=== PATIENT | male | born 1960 | race Caucasian/White ===

== ENCOUNTER 2019-10-22 09:03 | Outpatient (CLI) | payer MEDICAID, SELFPAY ==
--- NOTE | ~2019-10-22 | CT_ITS ---
EXAMINATION: CT lung screening DATE: 10/22/2019 10:23 INDICATION: Personal history of nicotine dependence, prior smoker with 33 pack year history TECHNIQUE: Computed tomography (CT) of the chest was performed without intravenous contrast. The dose -length product (DLP) was 127.20 mGy-cm. Automated exposure control and iterative reconstruction tech [employer] were employed. COMPARISON: None FINDINGS: There are 3 mm nodules of the left lower lobe on images 54 and 86. There is mild emphysema. The lungs are free of focal airspace opacities. There is minimal dependent atelectasis. No pathologi michele enlarged thoracic lymph nodes are identified. The heart size is normal. Calcified coronary jose ry atherosclerosis is noted. There are multiple healed left-sided rib fractures. Cysts of the left he patic lobe measure up to 12 mm. IMPRESSION: 1. Lung-RADS category 2: Benign appearance or behavior. Continue annual screening with noncontrast lo w-dose chest CT in 12 months. Reviewed, dictated and finalized at location A. IMPRESSION: 1. Lung-RADS category 2: Benign appearance or behavior. Continue annual screeni ng with noncontrast low-dose chest CT in 12 months.
--- NOTE | ~2019-10-22 | US_ITS ---
EXAMINATION: US scrotum doppler EXAM DATE: 10/22/2019 11:08 INDICATION: Intermittent right testicular pain. Prostate cancer, prostatectomy. Palpable abnormality. TECHNIQUE: Multiple grayscale and Doppler images of the testicles and scrotum were obtained bilateral ly. There is no prior study for comparison. FINDINGS: Scanning in the right scrotal palpable abnormality demonstrates elongated, tubular nonspeci fic hypoechoic region, could be along the spermatic cord, with some internal vascularity suspected. T his is nonspecific region. Right testicle measures 3.5 x 2.3 x 1.4 cm and is morphologically normal. Low resistance Doppler ric w confirmed. The epididymis is unremarkable. There is no hydrocele or varicocele. Left testicle measures 4.3 x 2.4 x 1.7 cm and is morphologically normal. Low resistance Doppler flow confirmed. The epididymis is unremarkable. There is no hydrocele or varicocele. IMPRESSION: 1. Nonspecific hypoechoic, tubular appearing soft tissue along the expected course of spermatic cord of uncertain clinical significance. Consider consult. Reviewed, dictated and finalized at location A. IMPRESSION: 1. Nonspecific hypoechoic, tubular appearing soft tissue along the expected co urse of spermatic cord of uncertain clinical significance. Consider consult.
== END 2019-10-22 09:04 | disposition home or self-care (01) ==
PROVIDERS: PCP Nurse Practitioner Family; Visit Provider Nurse Practitioner Family
DX: N50.811 Right testicular pain (principal); Z12.2 Encounter for screening for malignant neoplasm of respiratory organs; Z87.891 Personal history of nicotine dependence
CPT/HCPCS: 76870; 93976; G0297

== ENCOUNTER 2020-04-04 09:36 | Outpatient (CLI) | payer OTHER, SELFPAY ==
[2020-04-04 09:55] LABS: Basophils Absolute Auto 0.04 K/mm3 (0.00-0.10); Basophils Percent Auto 0.9 % (0.0-1.0); Eosinophils Absolute Auto 0.07 K/mm3 (0.02-0.50); Eosinophils Percent Auto 1.6 % (1.0-6.0); Hematocrit 43.5 % (40.0-54.0); Hemoglobin 14.3 g/dL (14.0-18.0); Immature Granulocyte Absolute 0.01 K/mm3 (0.00-0.00); Immature Granulocyte Percent A 0.2 % (0.0-0.0); Lymphocytes Absolute Auto 1.45 K/mm3 (1.10-4.50); Lymphocytes Percent Auto 32.4 % (18.0-42.0); Mean Corpuscular HGB Conc 32.9 g/dL (32.0-36.0); Mean Corpuscular Volume 94.4 fL (78.0-102.0); Mean Platelet Volume 9.1 fl (8.7-11.0); Monocytes Absolute Auto 0.46 K/mm3 (0.10-0.90); Monocytes Percent Auto 10.3 % (2.0-11.0); Neutrophils Absolute Auto 2.4 K/mm3 (1.7-7.2); Neutrophils Percent Auto 54.6 % (50.0-70.0); Platelet Count Result 253 K/mm3 (150-420); Red Blood Count 4.61 M/mm3 (4.70-6.10); Red Cell Distribution Width 12.5 % (11.6-14.4); White Blood Count 4.5 K/mm3 (4.8-10.8)
[2020-04-04 10:57] LABS: Alanine Aminotransferase 27 U/L (16-63); Albumin Level 4.1 g/dL (3.4-5.0); Alkaline Phosphatase 38 U/L (46-116); Anion Gap 7 mmol/L (8-16); Aspartate Amino Transferase 21 U/L (15-37); Bilirubin,Total 0.9 mg/dL (0.00-1.00); Blood Urea Nitrogen 23 mg/dL (7-18); Calcium 8.9 mg/dL (8.5-10.1); Carbon Dioxide 29 mmol/L (21-32); Chloride 104 mmol/L (98-108); Cholesterol 229 mg/dL (0-200); Estimated Glomerular Filt Rate > 60; Glucose 83 mg/dL (70-99); HDL Direct 56 mg/dL (40-60); LDL Cholesterol Calculated 158 mg/dL (<130); Osmolality Calculated 292 mOsm/kg (285-295); Potassium 4.6 mmol/L (3.5-5.1); Sodium 140 mmol/L (136-145); Total Protein 6.8 g/dL (6.4-8.2); Triglycerides 75 mg/dL (0-150)
[2020-04-06 21:18] LABS: PSA, Free <0.01 ng/mL; PSA, Total <0.1 ng/mL (<=4.0)
== END 2020-04-04 09:37 | disposition home or self-care (01) ==
LOC: CHSLAB 09:37
PROVIDERS: PCP Nurse Practitioner Family; Visit Provider Nurse Practitioner Family
DX: E78.5 Hyperlipidemia, unspecified (principal); Z12.5 Encounter for screening for malignant neoplasm of prostate
CPT/HCPCS: 36415; 80053; 80061; 84153; 84154; 85025

== ENCOUNTER 2020-05-28 10:53 | Outpatient (CLI) | payer OTHER, SELFPAY ==
--- NOTE | ~2020-05-28 | US_ITS ---
EXAMINATION: US soft tissue groin RT DATE: 05/28/2020 11:23 INDICATION: Right inguinal mass and pain. TECHNIQUE: Multiple grayscale and Doppler ultrasound images of the right inguinal region were obtaine d. COMPARISON: CT abdomen and pelvis 02/15/2016 FINDINGS: There is a small right inguinal hernia in the patient's area of concern, likely containing only fat. The hernia contained only fat on the prior CT. IMPRESSION: 1. Small right inguinal hernia. Reviewed, dictated and finalized at location A.
== END 2020-05-28 10:54 | disposition home or self-care (01) ==
PROVIDERS: PCP Nurse Practitioner Family
DX: R10.31 Right lower quadrant pain (principal)
CPT/HCPCS: 76882

== ENCOUNTER 2020-10-16 13:49 | Outpatient (RCR) | payer OTHER, SELFPAY ==
--- NOTE | 2020-10-16 15:24 | PTOPEVAL ---
Thank you for referring Nimesh Werner to [facility].? The patient is scheduled to be seen for therapy? __2__x/week for 10 visits. Please review, sign, date and return this plan of care EVONNE. I agree with and certify that the following plan of care is medically necessary. Referring Physician Date Admitting Provider: Attending Provider: SHANTA HELTON Referring Provider: *PT Outpatient Evaluation Start: 10/16/20 14:12 Freq: Status: Active Protocol: Document 10/16/20 14:12 JENNIFER (Rec: 10/16/20 15:23 JENNIFER [id number]) Therapy Assessment Status Assessment Status Assessment Status Evaluation Evaluation Information Problem Diagnosis pelvic pain Onset 01/05/19 Subjective Information Pt. reports that he has had Query Text:As Reported By Patient/ pain since 2019. He reports Family having undergone treatment multiple times for prostate cancer. Pt. reports that he had surgery to reduce pain in the testicle. He reports that he has since developed pain along the right side of the lumbosacral region, iliac crest and into the groin. He reports that pain is not constant, but related more to his activity level. He reports that his pain does not keep him from completing his tasks, but definietly can limit more vigorous activity. He states his goal is to reduce pain. Prior Level of Function Activity Level (Last 3 Months) Occupation carpentar Hand Dominance Right Activity of Daily Living Ability Independent Indoor/Home Mobility Independent Community Mobility Independent Stairs Ability Independent Functional Cognition (Planning, Shopping Independent , Taking Medications) Cooking Yes Cleaning Yes Laundry Yes Shopping Yes Driving Yes Pain Assessment Pain Scale Pain Scale Used Numeric (1 - 10) Self Report Pain Assessment Groin Reported Pain Level 8 Pain Description Aching Lower Back Reported Pain Level 5 Pain Description Aching Pain Frequency Intermittent Pain Aggravating Factors
--- NOTE | 2020-11-19 17:41 | PTOPEVAL ---
Thank you for referring Nimesh Werner to [facility].? The patient is scheduled to be seen for therapy? ____x/week for ___ weeks. Please review, sign, date and return this plan of care EVONNE. I agree with and certify that the following plan of care is medically necessary. Referring Physician Date Admitting Provider: Attending Provider: HSANTA HELTON Referring Provider: DIANDRA Outpatient Evaluation Start: 10/16/20 14:12 Freq: Status: Active Protocol: Document 11/19/20 16:30 [facility] (Rec: 11/19/20 17:40 [facility] [id number]) Therapy Assessment Status Assessment Status Assessment Status Re-evaluation Evaluation Information Problem Diagnosis pelvic pain Onset 01/05/19 Additional Evaluation Detail LEFS = 26% functionally declined Subjective Information patient reports he is Query Text:As Reported By Patient/ improving. he reports he is Family having consistent and more frequent good days. he reports overall his pain is lower, but reports at times he will continue to have bouts of increased pain. he reports he is compliant with his HEP at home. Pain Assessment Timing of Pain Assessment Timing of Pain Assessment Assessment Pain Scale Pain Scale Used Numeric (1 - 10) Self Report Pain Assessment Left Hip(s) Reported Pain Level 5 Greatest Pain Intensity 7 Groin Reported Pain Level 0 Greatest Pain Intensity 0 Lower Back Reported Pain Level 3 Greatest Pain Intensity 5 Pain Score Pain Score 0,3,5: Self Report Interventions Used Interventions Used By Clinicians Electrical Stimulation, Exercise,Heat,Manual Therapy Techniques Cervical and Lumbar ROM Lumbar ROM Lumbar Flexion Active Floor Query Text:Hands to: Lumbar Extension (0-40) 40 Query Text:Active in Degrees Lumbar Lateral Flexion Right (0-40) 40 Query Text:Active in Degrees Lumbar Lateral Flexion Left (0-40) 40 Query Text:Active in Degrees Cervical and Lumbar Muscle Testing Lumbar Strength Upper Abdominal Strength 3+Fair+ Lower Abdominal Strength 3+Fair+ Abdominal Obliques 3+Fair+ Lower Extremity Muscle Strength Testing Hip Strength Left Hip Flexion Strength 5 Normal Hip Extension Strength 5 Normal Hip Abduction Strength 4+ Good + Right Hip Flexion Strength 4+ Good + Hip Extension S
== END 2021-01-11 17:37 | disposition home or self-care (01) ==
LOC: CHSPT 13:49
PROVIDERS: PCP Nurse Practitioner Family
DX: R10.2 Pelvic and perineal pain (principal)
CPT/HCPCS: 97014; 97110; 97140; 97161; G0283

== ENCOUNTER 2021-04-25 09:11 | Emergency (ER) | payer OTHER, SELFPAY ==
--- NOTE | ~2021-04-25 | XR_ITS ---
EXAMINATION: XR finger 1st RT min 2V INDICATION: Right first finger pain TECHNIQUE: Views of the right first finger are obtained. COMPARISON: None available FINDINGS: There is a soft tissue laceration at the palmar aspect of the thumb overlying the distal ph alanx. No fracture is identified. There is no radiopaque foreign body. Mild osteoarthritis is noted i n the interphalangeal joints. IMPRESSION: 1. Soft tissue laceration of the right first finger without underlying osseous abnormality. Reviewed, dictated and finalized at location A.
[2021-04-25 09:15] VITALS: BP 119/79; PULSE 59; RESP 16; TEMP 36.1; O2SAT 100
[2021-04-25] MEDS: SODIUM CHLORIDE 0.9% IRRIG 1,000 ML 999 ML IRRIGATION (09:40)
--- NOTE | 2021-04-25 09:41 | PC.NURSE ---
normal saline 1 L irrigation of wound at 0940 per erp orders. stop time 0941.
--- NOTE | 2021-04-25 09:50 | ED.WOUNDLAC ---
HPI - Wound/Laceration General Chief Complaint: Wound/Laceration Stated Complaint: R thumb lac from table saw Time Seen by Provider: 04/25/21 09:13 Source: patient and RN notes reviewed Mode of arrival: ambulatory Limitations: no limitations History of Present Illness Onset (ago): minute(s) (20) Extremity Location: Right: hand Place: home Patient tetanus UTD: No Context: accidental Associated symptoms: pain Treatments prior to arrival: bandage Related Data Home Medications Medication Instructions Recorded Confirmed calcium carbonate 500 mg calcium 500 mg PO DAILY 08/01/19 04/25/21 (1,250 mg) tablet cholecalciferol (vitamin D3) 100 4,000 unit PO DAILY 08/01/19 04/25/21 mcg (4,000 unit) capsule tqhegkuazyy-cpmmyuluz-zbie391-hyal 1 tablet PO DAILY tablet 09/10/19 04/25/21 750 mg-100 mg-125 mg-1.65 mg tablet smcieqqtqvjt-jtq-sudnj acid-vit 1 tablet PO DAILY 10/18/19 04/25/21 K-lycop 400 mcg-20 mcg-370 mcg tablet psyllium husk 0.52 gram capsule 2.08 gm PO DAILY cap 10/18/19 04/25/21 Allergies Allergy/AdvReac Type Severity Reaction Status Date / Time No Known Allergies Allergy Verified 07/14/20 12:25 Review of Systems Review of Systems: All systems reviewed & are unremarkable except as noted in HPI and below Musculoskeletal: Musculoskeletal: Reports as per HPI [facility] Past Medical History Medical History (Updated 04/25/21 @ 10:21 by Marcin Edward MD) Anxiety Bulging of cervical intervertebral disc Hyperlipidemia Major depressive disorder, recurrent Malignant tumor of prostate onset in 2017-finished radiation on 12/12/17 Muscle cramp, nocturnal Nicotine dependence Right knee pain Trigger thumb of left hand Surgical History Surgical History H/O neck surgery History of prostate surgery History of surgical removal of meniscus of knee Family History Family History Mother Breast cancer Esophageal cancer Other Arthritis Cancer Social History Social History Social History: , has 2 children Smoking packs per day: 0.5 Smoking cigarettes per day: 10.0 Years smoked: 33 Smoking pack-years: 16.50 Smoking status: Former smoker Tobacco type: cigarettes Alcohol intake: current Alcohol use details: social Substance use: unknown Substance use type: marijuana Gender identity (if verbalized by the patient): Male Spiritual care concerns: No Exam Const: General: no acute distress and alert Nutritional Appearance: well nourished Orientation/consciousness: patient oriented x3 HENMT: Head: normal to inspection Ears: external ears normal, TM's normal bilaterally and EAC's normal General nose exam: Normal external nose present and Normal nares present Mouth: Yes moist mucous membranes Eyes: Conjunctivae: conjunctivae normal Pupils: Equal, round and reactive pupils present EOM: EOMs intact bilaterally Neck: Neck: normal visual inspection and no lymphadenopathy Chest: Chest palpation & inspection: normal inspection of the chest Resp: Effort & Inspection: normal respiratory effort Auscultation: clear to auscultation bilaterally Cardio: Rate: regular rate Rhythm: regular rhythm GI: GI Palp: Yes Soft to palpation (non-tender) Percussion: Yes normal to percussion Back/Spine/Pelvis: Back: no CVA tenderness Skin: General skin exam: normal color Rashes: no rashes Neuro: General: patient oriented x3, moves all extremities, no meningeal signs, no focal motor deficits and CN's II-XI intact bilaterally Extrem: Other: wide anterior right thumb laceration 2.5 cm. no FB seen, full ROM right thumb. Psych: Appearance: grossly normal and well kempt Mental Status: mental status grossly normal Affect: normal affect Attitude: cooperative Thought content: Yes Normal thought content pre
[2021-04-25] MEDS: TETANUS,DIPHTHERIA,AC PERTUSSIS ADULT 0.5 ML (ADACEL) IM (09:53)
[2021-04-25] MEDS: cefTRIAXone 1 GM VIAL IM (09:53)
[2021-04-25] MEDS: LIDOCAINE HCL 2% PF INJ 5 ML VIAL 3 ML INFILTRATE (09:54)
[2021-04-25] MEDS: LIDOCAINE HCL 1% LOCAL INJ 20 ML VIAL (09:55)
--- NOTE | 2021-04-25 10:24 | PC.NURSE ---
ERP ENTERS ROOM 7 TO REPAIR LACERATION AT THIS TIME
[2021-04-25 11:05] VITALS: BP 130/91; PULSE 58; RESP 16; O2SAT 100
--- NOTE | 2021-04-25 11:11 | PC.NURSE ---
DRESSING PLACED ON RIGHT THUMB DIRECTED BY ERP
== END 2021-04-25 11:10 | disposition home or self-care (01) ==
PROVIDERS: Emergency Provider Emergency Medicine; PCP Nurse Practitioner Family
DX: S61.011A Laceration without foreign body of right thumb without damage to nail, initial encounter (principal); W27.0XXA Contact with workbench tool, initial encounter
CPT/HCPCS: 12001; 73140; 90471; 90715; 96372; 99283; J0696; J7030

== ENCOUNTER 2021-10-18 08:20 | Outpatient (CLI) | payer OTHER, SELFPAY ==
--- NOTE | ~2021-10-18 | XR_ITS ---
EXAMINATION: XR hip RT 2V w AP pelvis DATE: 10/18/2021 08:44 INDICATION: Right hip pain. TECHNIQUE: An anteroposterior view of the pelvis and 2 views of right hip were obtained. COMPARISON: CT abdomen and pelvis 02/15/2016 FINDINGS: Bone alignment is normal. No fracture. There is mild osteoarthritis of the hips. There is m ild lumbar spondylosis. There are surgical clips overlying the pelvis. IMPRESSION: 1. Mild osteoarthritis of the hips. Reviewed, dictated and finalized at location A.
== END 2021-10-18 08:21 | disposition home or self-care (01) ==
LOC: CHSIMG 08:21
PROVIDERS: PCP Nurse Practitioner Family; Visit Provider Orthopaedic Surgery
DX: M25.551 Pain in right hip (principal)
CPT/HCPCS: 73502

== ENCOUNTER 2022-01-31 02:20 | Day surgery (SDC) | payer OTHER, SELFPAY ==
[2022-01-21 10:00] VITALS: BMI 24.7
[2022-01-31 06:25] VITALS: BP 117/73; PULSE 62; RESP 20; TEMP 36; O2SAT 100; BMI 24.2
[2022-01-31] MEDS: LACTATED RINGERS 1,000 ML 150 ML IV CONT (06:34)
--- NOTE | 2022-01-31 07:26 | WPDANESEPPF ---
Anes - Initial Pre Proc Eval Procedure: Operation Date: 01/31/22 07:30 Proposed Procedures p Colonoscopy - Luca Austin MD Date/Time: 01/31/22 07:26 Surgeon: Luca Austin MD Pre Op Diagnosis: change in bowel habits Patient Data Age: 61 Gender: M Height: 1.73 m Weight: 72.2 kg Last Vital Signs Temp 96.8 F L 01/31/22 06:25 Pulse 62 01/31/22 06:25 Resp 20 01/31/22 06:25 BP 117/73 01/31/22 06:25 Pulse Ox 100 01/31/22 06:25 O2 Del Method Room Air 01/31/22 06:25 Allergies Allergy/AdvReac Type Severity Reaction Status Date / Time No Known Allergies Allergy Verified 01/31/22 06:20 Home Medications Medication Instructions Recorded Confirmed Type cholecalciferol (vitamin D3) 100 4,000 unit PO DAILY 08/01/19 01/21/22 History mcg (4,000 unit) capsule (Vitamin D3) tzlgriyitqv-mrebefhgf-oukx972-hyal 1 tablet PO DAILY 09/10/19 01/21/22 History 750 mg-100 mg-125 mg-1.65 mg tablet (Glucosamine Chondroit Complx Advan) orzwicrvsjhd-alt-rqpnf acid-vit 1 tablet PO DAILY 10/18/19 01/21/22 History K-lycop 400 mcg-20 mcg-370 mcg tablet (Men's 50 Plus Multivitamin) psyllium husk 0.52 gram capsule 2.08 gm PO DAILY 10/18/19 01/21/22 History (Fiber (psyllium husk)) omega-3 fatty acids 1,000 mg 1,000 mg PO BID #180 caps 04/07/20 01/21/22 Rx capsule (Fish Oil Concentrate) pregabalin 50 mg capsule 50 mg PO BID 09/24/21 01/21/22 History clotrimazole 1 % topical cream 1 applic topical Q12H 2 weeks #45 01/04/22 01/21/22 Rx grams tramadol 50 mg tablet 50 mg PO Q6H PRN pain #9 tabs 01/04/22 01/21/22 Rx alprazolam 0.5 mg tablet (Xanax) 0.5 mg PO BID PRN anxiety #20 tabs 01/05/22 01/21/22 Rx peg 3350-electrolytes 236 240 ml PO Q10M #4,000 mL 01/21/22 01/21/22 Rx gram-22.74 gram-6.74 gram-5.86 gram solution (Golytely) Patient hx anesthesia problems: none Family hx anesthesia problems: none Results Review: All pre-operative results and documents have been reviewed as part of the pre-operative evaluation. [facility] Past Medical History Medical History (Updated 01/19/22 @ 15:44 by Aneudy Gallo DO) Anxiety Bulging of cervical intervertebral disc Gluteal tendinitis, right hip Greater trochanteric bursitis of left hip Hyperlipidemia Laceration of right thumb Major depressive disorder, recurrent Malignant tumor of prostate onset in 2017-finished radiation on 12/12/17 Muscle cramp, nocturnal Nicotine dependence Right knee pain Testicular pain Trigger thumb of left hand Trochanteric bursitis, right hip Vision changes Surgical History Surgical History H/O neck surgery History of prostate surgery History of surgical removal of meniscus of knee History of testicular surgery Removal of right testicle Family History Family History Mother Breast cancer Esophageal cancer Other Arthritis Cancer Social History Social History Social History: , has 2 children Smoking packs per day: 0.5 Smoking cigarettes per day: 10.0 Years smoked: 33 Smoking pack-years: 16.50 Smoking status: Former smoker Tobacco type: cigarettes Alcohol intake: current Alcohol use details: Social Substance use: former Substance use type: marijuana Living arrangements: alone Gender identity (if verbalized by the patient): Male Spiritual care concerns: No Anes - Eval Final PreProcedure Day of Procedure 01/31/22 07:26 Patient weight: normal Heart: regular rate and rhythm Lungs: clear to auscultation Airway: Mallampati scale class II Neurological: alert and oriented Last oral intake: >/= 8 hours ASA classification: III Emergent: no Anesthetic plan: proceed Anesthesia type and monitoring: general GIVS and standard monitoring Results Review: All pre-operative results and do
--- NOTE | 2022-01-31 07:37 | WPDHPUPDATE1 ---
History and Physical Update Update Date/Time: 01/31/22 07:37 Addendum colonoscopy to be performed because of right groin pain. Please note biopsies will not be performed because of radiation previously. History and Physical has been reviewed, including an updated exam of the patient. There are NO changes in the patient's condition. Risks, benefits, and alternatives have been discussed and questions answered. Patient agrees to proceed with procedure.
[2022-01-31 07:53] VITALS: BP 110/70; PULSE 61; RESP 16; O2SAT 100
[2022-01-31 08:03] VITALS: BP 110/73; PULSE 53; RESP 16; O2SAT 100
[2022-01-31 08:13] VITALS: BP 121/74; PULSE 55; RESP 18; O2SAT 100
== END 2022-01-31 08:37 | disposition home or self-care (01) ==
PROVIDERS: PCP Family Medicine; Visit Provider Internal Medicine Gastroenterology
PROC: 0DJD8ZZ Inspection of Lower Intestinal Tract, Via Natural or Artificial Opening Endoscopic (ICD-10-PCS; CPT 45378; principal; 2022-01-31 07:30)
DX: Z12.11 Encounter for screening for malignant neoplasm of colon (principal); K64.8 Other hemorrhoids; K57.30 Diverticulosis of large intestine without perforation or abscess without bleeding; R19.4 Change in bowel habit; Z85.46 Personal history of malignant neoplasm of prostate; Z92.3 Personal history of irradiation; Z87.891 Personal history of nicotine dependence
CPT/HCPCS: 45378; J2704; J7120

== ENCOUNTER 2025-02-24 13:59 | Outpatient (CLI) | payer OTHER, SELFPAY ==
--- NOTE | ~2025-02-24 | XR_ITS ---
EXAM/ PROCEDURE: XR hand LT min 3V - 02/24/2025 14:10 CDT HISTORY: 64 years old Male with M18.12 - Unilateral primary osteoarthritis of first carpo... COMPARISON: None available TECHNIQUE: Three view(s) FINDINGS/ IMPRESSION: There are no fractures or dislocations.Joint space narrowing, subchondral sclerosis, subchondral cyst formation and osteophyte formation, compatible with mild osteoarthritis, greatest at first carpometa carpal joint. Reviewed, dictated and finalized at location A.
--- OUTSIDE RECORDS SUMMARY | 2025-02-24 14:04 | XMS_ITS | Clinical Summary ---
Author Organization [facility] Address [address] [place] [address] Care Team Providers Care Senior Product Integrity Engineer Name Role Phone Unavailable Primary Care Provider Unavailabl e Source Comments [facility],non-owned Affiliates and Associated Physician Practices is amultiple site organization consisting of ambulatory clinics and hospital sitesin [place], [place], [place] and [place]. This disclosure is being madepursuant to the Care Everywhere program and may not contain all information available regarding this patient. Last updated 18.[facility] Allergies No known active allergies Medications * Be aware that medications may not be up to date on this document. Alwaysverify current medications with the patient. multivitamins (ONE A DAY) capsule Take 1 capsule by mouth once daily Active Ephraim-3 Fatty Acids (OMEGA-3 FISH OIL) 1200 MG Take 1,200 mg by mouth once daily Active Glucosamine HCl 1000 MG Take 1 tablet by mouth once daily Active Psyllium (FIBER) 28.3 % POWD Take 2 tablets by mouth 2 times daily Active Cholecalciferol 125 MCG (5000 UT) Take 5,000 Units by mouth once daily Active ALPRAZolam (XANAX) 0.5 MG tablet TAKE 1 TAB BY MOUTH TWICE DAILY NEEDED FOR ANXIETY 06/14/2021 Active DULoxetine (CYMBALTA) 60 MG capsule 11/10/2021 Active gabapentin (NEURONTIN) 100 MG capsule 04/30/2021 Active ibuprofen (MOTRIN) 800 MG tablet TAKE 1 TABLET BY MOUTH 3 TIMES A DAY 04/25/2021 Active Active Problems Problem Noted Date Diagnosed Date Adjustment disorder with depressed mood 07/14/20 21 Other chronic pain 07/14/2021 Complex regional pain syndrome type 2 06/21/2021 Groin pain, chronic, right 06/21/2021 Ilioinguinal neuralgia, right 06/21/2021 Pain in right testicle 06/11/2020 Overview (09/06/2021): Added automatically from request for surgery [id number] Malignant neoplasm of prostate 02/22/2016 Social History Tobacco Use Types Packs/Day Years Used Date Smoking Tobacco: Every Day Smokeless Tobacco: Never Alcohol Use Standard Drinks/Week Comments Yes 0 (1 standard drink = 0.6 oz pur e alcohol) Sex and Gender Information Value Date Recorded Sex Assigned at Not on file Legal Sex Male 7:24 PM [employer]UM [employer] Gender Identity Not on file Sexual Orientation Not on file Plan of Treatment Health Maintenance Due Date Last Done Comments COLOGUARD (AGES 45-75) - COL ON CA SCREENING 1962 COLON MONITORING 1962 COLONOSCOPY - COLON CA SCREENING 1962 CT COLONOGRAPHY - COLON CA SCREENING 1962 Colorectal Cancer Screening 1962 FIT - COLON CA SCREENING 1962 FLEX SIG - COLON CA SCREENING 1962 LIPID TESTING 1962 HIV SCREENING 1977 HEPATITIS C SCREENING 06/03/1980 DTAP/TDAP/TD VACCINES (1 - Tdap) 1981 PNEUMOCOCCAL VACCINE 50+ (1 of 1 - PCV) 2012 ZOSTER VACCINE (1 of 2) 2012 COVID-19 VACCINE (3 - 2023-2 5 season) 2024 08/24/2021, 10/12/2020 DEPRESSION SCREENING 08/07/2024 INFLUENZA VACCINE (#1) 2025 Respiratory Syncytial Virus (RSV) Vaccine Pt: or over 60 yrs (1 - 1-dose 75+ series) 2037 HEPATITIS B VACCINE Aged Out No longe r eligible based on patient's age to complete this topic HIB VACCINE Aged Out No longer eligi ble based on patient's age to complete this topic HPV VACCINE Aged Out No longer eligi ble based on patient's age to complete this topic MENINGOCOCCAL (Group B) VACCINE SHARED DECISION-MAKING Aged Out No longer eligible based on patient's age to complete this topic MENINGOCOCCAL GROUPS A/C/Y/W VACCINE Aged Out No longer eligible b ased on patient's age to complete this topic Insurance [facility]
--- OUTSIDE RECORDS SUMMARY | 2025-02-24 14:04 | XMS_ITS | Clinical Summary ---
Author Organization [place] [id number] Address [address] [place] [address] Care Team Providers Care Surgical Consultant Name Role Phone Foster Mena MD Unavailable Sherita Handley NP Unavailable [phone] Aneudy Gallo DO Primary Care Provider Allergies No known active allergies Medications ALPRAZolam (XANAX) 1 mg tablet Take 1 tablet (1 mg total) by mouth nightly as needed for anxiety Active glucosamine HCl (GLUCOSAMINE, BULK, MISC)Indication s:supplement Take 1 tablet by mouth daily before breakfast Active multivitamin capsuleIndicati ons:Vitamin Deficiency Prevention Take 1 capsule by mouth daily before breakfast Active omega 1-ohx-lcg-fish oil 1,200 (144-216) mg capsuleIndicati ons:hypertrigly ceridemia Take 1,200 mg by mouth daily before breakfast Active cholecalciferol (VITAMIN D-3) 5,000 unit tabletIndicatio ns:Vitamin D Deficiency Take 1 tablet (5,000 Units total) by mouth daily before breakfast Active luzw-pjr-pqs-ce c-sjna-kksf-pec (Fiber 6) 1,000 mg tabletIndicatio ns:constipation Take 2 tablets by mouth 2 (two) times a day Active atorvastatin (LIPITOR) 20 mg tablet Take 1 tablet (20 mg total) by mouth daily 09/20/19 24 Active lidocaine 5 % creamIndication s:abdominal wall pain Apply 2 g topically 4 (four) times a day 45 g 2 11/10/19 24 Active magnesium glycinate 100 mg tablet Take by mouth Active traMADoL (ULTRAM) 50 mg tabletIndicatio ns:Chronic use of opiate drug for therapeutic purpose TAKE 1 TABLET (50 MG TOTAL) BY MOUTH EVERY 6 (SIX) HOURS NEEDED FOR PAIN FOR PAIN 120 tablet 02/11/20 25 Active traMADoL (ULTRAM) 50 mg tabletIndicatio ns:Chronic use of opiate drug for therapeutic purpose Take 1 tablet (50 mg total) by mouth every 6 (six) hours as needed for pain for pain 120 tablet 01/10/20 25 025 Discontinued(Re order) traMADoL (ULTRAM) 50 mg tabletIndicatio ns:Chronic use of opiate drug for therapeutic purpose Take 1 tablet (50 mg total) by mouth every 6 (six) hours as needed for pain for pain 120 tablet 02/09/20 25 025 Discontinued Active Problems Problem Noted Date Diagnosed Date Chronic use of opiate drug for therapeutic purpo se 01/12/2022 Other chronic pain 07/14/2021 Adjustment disorder with depressed mood 07/14/20 21 Complex regional pain syndrome type 2 06/21/2021 Groin pain, chronic, right 06/21/2021 Ilioinguinal neuralgia, right 06/21/2021 Pain in right testicle 06/11/2020 Overview (06/11/2020): Added automatically from request for surgery [id number] Malignant neoplasm of prostate 02/22/2016 Cancer Staging:Pathologic stage from 01/27/2016: pT2, pN0, cM0, PSA: 11 - Signed by Blanche Landry MD on 02/07/2018 Encounters Date Type Department Care Team Description 02/03/2025 8:30 AM CDT - 02/03/2025 11:59 PM CDT Hospital Encounter [address] [address] Discharge Disposition: Discharge to home or self care 02/03/2025 8:00 AM CDT - 02/03/2025 11:59 PM CDT Hospital Encounter [facility] [address] [place] [address] [facility] [address] [place] [id number] Grayson Garcia MD PhD Chronic use of opiate drug for therapeutic purpose (Primary Dx) Discharge Disposition: Discharge to home or self care from Last 3 Months Immunizations Immunization Administration Dates Next Due Visuu (J&J) SARS-CoV-2 Vaccination 10/12/2020 Pfizer SARS-CoV-2 Monovalent Vaccination (12+ Yrs) ACUNA-READY TO USE 08/24/2021 Surgical History Surgery Date Site/Laterality Comments CERVICAL DISC SURGERY 07/05/2018 C5-C6 KNEE ARTHROSCOPY 08/07/2017 - 08/06/2018 Left RADICAL PROSTATECTOMY 08/07/2015 - 08/06/2016 TESTICLE SURGERY 08/13/2020 DENERVATION RIGHT SPERMATIC CORD BIOPSY DEEP BONE 06/16/2021 N/A COLONOSCOPY ORCHIECTOMY 12/17/2020 Right NERVE EXPLORATION 12/07/2021 Right Robotic selective ilioinguinal/iliohypogastr ic neurectomy Medical History Medical History Date Comments Anxiety Depression Prostate cancer (HCC) 03/2016 Hypercholesteremia Chronic pain disorder Macular pucker of both eyes Groin pain, right Right groin pain Abdominal pain Abdominal pain Family History Medical History Relation Name Comments Heart disease Father Prostate cancer Father Family histo ry of malignant neoplasm of prostate - (Added by TW Conv) Breast cancer Mother Family history of malignant neoplasm of breast - (Added by TW Conv) Esophageal cancer Mother Family his tory of malignant neoplasm of esophagus - (Added by TW Conv) Anesthesia problems Neg Hx Relation Name Status Comments Father Other states dad has a damaged heart Mother Social History Tobacco Use Types Packs/Day Years Used Date Smoking Tobacco: Former Cigarettes 0.5 30 1 1 - 2020 Smokeless Tobacco: Never Tobacco Cessation:Counseling Given: Not Answered Comments:currently using nicorette gum Alcohol Use Standard Drinks/Week Comments Yes 0 (1 standard drink = 0.6 oz pur e alcohol) AUDIT-C Answer Date Recorded Q1: How often do you have a drink containing alc ohol? Monthly or less 02/03/2025 Q2: How many drinks containi ng alcohol do you have on a typical day when you are drinking? 1 or 2 02/03/2025 Q3: How often do you have si x or more drinks on one occasion? Never 02/03/2025 Hunger Vital Sign Answer Date Recorded Within the past 12 months, y ou worried that your food would run out before you got the money to buy more. Never true 08/02/20 24 Within the past 12 months, t he food you bought just didn't last and you didn't have money to get more. Never true 08/02/2024 Sex and Gender Information Value Date Recorded Sex Assigned at Not on file Legal Sex Male 4:06 AM SUPERVISOR COMPONENT ASSEMBLER Gender Identity Male 01/27/2020 1:06 PM CDT Sexual Orientation Straight 01/27/2020 1: 06 PM CDT Obstetrics History Last Filed Vital Signs Vital Sign Reading Time Taken Comments Blood Pressure 127/80 02/03/2025 8:05 AM CDT Pulse 58 02/03/2025 8:05 AM CDT Temperature 36.4 C (97.5 F) 02/03/2025 8:05 AM CDT Respiratory Rate 14 02/03/2025 8:05 AM CDT Oxygen Saturation 99% 02/03/2025 8:05 AM CDT Inhaled Oxygen Concentration - - Weight 77.1 kg (170 lb) 02/03/2025 8:05 AM CDT Height 170.2 cm (5' 7) 02/03/2025 8:05 AM CDT Body Mass Index 26.63 02/03/2025 8:05 AM CDT Plan of Treatment Health Maintenance Due Date Last Done Comments Colon Cancer Screening-Colonoscopy 1962 Depression Screening 1962 Hepatitis C Screening 1962 DTaP/Tdap/Td Vaccine (1 - Tdap) 1973 Hepatitis B Screening 1980 Regular Well Visit/Exam 18-64 1980 Zoster Vaccine (3 of 3) 08/12/2022 06/17/2022, 12/14 Prostate Cancer Screening-PSA 09/22/2023 09/22/2021, 03/25/2021, 08/04/2020, Additional history exists Covid-19 Vaccine (3 - 2023- season) 2024 08/24/2021, 10/12/2020 Influenza Vaccine (#1) 2025 03/30/2018 Pneumococcal vaccine <65 Aged Out No longer eligible based on patient's age to complete this topic Goals Goal Patient Goal Type Associated Problems Recent Progress Patient-Stated? Author CCM Chronic Pain Care Plan Chronic Care Management On track(2024 8:09 AM CDT) No Ni Duque, RN Note: Problem: Chronic Pain Goals: 1. Minimize further functional decline 2. Maximize quality of life 3. Control pain Strategies: - Activity/exercise program recommendation - Conservative stepwise pain medicine strategy with multi-disciplinary approach - Recommend healthy lifestyle strategies and compensatory methods as needed Medical Devices Implanted Type Area Poiser Balance Device Identifier Shelf Expiration Date Model / Serial / Lot [employer] [id number] Graft Soft Tissue Amniofix Purion Amniotic Membrane L2cm X W4cm Wrap - Sn/A - [id number] Implanted:Qty : 1 on 08/13/2020 by Fabio Kennedy MD at [facility] Other - see comments Right: Testicle [employer] 12/05/2024 [id number] / N/A / [id number] Cervical N/A: Neck Procedures Procedure Name Priority Date/Time Associated Diagnosis Comments TARGET OPIOID SCREEN BY REAL ESTATE ACQUISITION ANALYST Routine 02/03/2025 8:32 AM CDT DRUGS OF ABUSE SCREEN, URINE WITH REFLEX CONFIRMATION Routine 02/03/2025 8:32 AM CDT PSA DIAGNOSTIC Routine 09/22/2021 8:55 AM SUPERVISOR COMPONENT ASSEMBLER Malignant neoplasm of prostate (HCC) from Last 3 Months or Most Recently Relevant to Health Maintenance Results * Targeted Opioid Screen, Ur (02/03/2025 8:32 AM CDT) Pathologist [facility] Pain mgt 6-Acetylmorphine, Ur Not Detected CutOff 10 ng/mL Pain mgt Buprenorphine, Ur Not Detected CutOff 5 ng/mL [facility] Pain mgt Buprenorphine metabolite (Norbuprenorphine), Ur Not Detected CutOff 5 ng/mL [facility] Pain mgt Codeine, Ur Not Detected CutOff 25 ng/mL [facility] Pain mgt Hydrocodone, Ur Not Detected CutOff 25 ng/mL [facility] Pain mgt Hydromorphone, Ur Not Detected CutOff 25 ng/mL [facility] Pain mgt Methadone, Ur Not Detected CutOff 25 ng/mL [facility] Pain mgt Methadone Metabolite (EDDP), Ur Not Detected CutOff 25 ng/mL [facility] Pain mgt Morphine, Ur Not Detected CutOff 25 ng/mL [facility] Pain mgt Oxycodone, Ur Not Detected CutOff 25 ng/mL [facility] Pain mgt Oxymorphone, Ur Not Detected CutOff 25 ng/mL [facility] Pain mgt Tapentadol, Ur Not Detected CutOff 25 ng/mL [facility] Pain mgt Tramadol, Ur Detected CutOff 25 ng/mL [facility] Pain mgt Tramadol metabolite (O-desmethyltramado l), Ur Detected CutOff 25 ng/mL [facility] Comment: Interpretive Data This test only detects free, unconjugated drugs. The absence of expected drug(s) and/or metabolite(s) may indicate non-compliance, inappropriate timing of specimen collection relative to the time of dosing, variability in absorption, diluted or adulterated urine, or other testing limitations. Questions concerning interpretation should be directed to the laboratory. The results of this test are to be used only for medical purposes and are not suitable for forensic use. This test was developed and its performance characteristics determined by [facility]. It has not been cleared or approved by the U.S. Food and Drug Administration. Current interpretive data was last revised 19. Pain mgt Naloxone, ur Not Detected cutoff 20 ng/ml [facility] Urine 02/03/2025 8:32 AM CDT 02/03/2025 5:03 PM CDT Grayson Garcia MD PhD LAB URINE ORDERAB LES Final Result [facility] [place] [address] * (ABNORMAL) Drugs of Abuse Screen, Urine with Reflex Confirmation (02/03/2025 8:32 AM CDT) [facility] Amphetamine, ur Not Detected CutOff 500ng/mL Comment: Interpretive Data - Amphetamines: Samples containing greater than 500 ng/mL d-methamphetamine or other cross-reacting amphetamine compounds are reported as positive. Amphetamine immunoassays are subject to significant false positive rates due to cross-reactivity of non-amphetamine drugs. Confirmatory testing required for definitive results. Current Interpretive Data was last reviewed 2023. Barbiturates, ur Not Detected CutOff 200ng/mL [facility] Comment: Interpretive Data - Barbiturates: Samples containing greater than 200 ng/mL secobarbital or other cross-reacting barbiturate compounds are reported as positive. False positive and false negative results are possible. Confirmatory testing required for definitive results. Current Interpretive Data was last reviewed 2023. Benzodiazepines, ur Not Detected CutOff 100ng/mL [facility] Comment: Interpretive Data - Benzodiazepines: Samples containing greater than 100 ng/mL nordiazepam or other cross-reacting compounds are reported as positive. False positive and false negative results are possible. Confirmatory testing required for definitive results. Current Interpretive Data was last reviewed 2023. Cannabinoids, ur Screen Positive, presumptive (A) CutOff 50 ng/mL [facility] Comment: Interpretive Data - Cannabinoids: Samples containing greater than 50 ng/mL delta-9 THC -COOH or other cross- reacting compounds are reported as positive. False positive and false negative results are possible. Confirmatory testing required for definitive results. Current Interpretive Data was last reviewed 2023. Cocaine, ur Not Detected CutOff 150ng/mL [facility] Comment: Interpretive Data - Cocaine: Samples containing greater than 150 ng/mL benzoylecgonine or other cross- reacting compounds are reported as positive. False positive and false negative results are possible. Confirmatory testing required for definitive results. Current Interpretive Data was last reviewed 2023. Fentanyl, Ur Not Detected CutOff 5 ng/mL [facility] Comment: Interpretive Data - Fentanyl: Samples containing greater than 5 ng/mL norfentanyl, fentanyl, or other cross-reacting fentanyl compounds are reported as positive. False positive and false negative results are possible. Confirmatory testing required for definitive results. Current Interpretive Data was last reviewed 2023. Methadone, ur Screen Positive, presumptive (A) CutOff 300ng/mL [facility] Comment: Interpretive Data - Methadone: Samples containing greater than 300 ng/mL d,l-methadone or other cross-reacting compounds are reported as positive. False positive and false negative results are possible. Confirmatory testing required for definitive results. Current Interpretive Data was last reviewed 2023. Opiates, ur Not Detected CutOff 300ng/mL [facility] Comment: Interpretive Data - Opiates: Samples containing greater than 300 ng/mL morphine or other cross-reacting compounds are reported as positive. False positive and false negative results are possible. Confirmatory testing required for definitive results. Current Interpretive Data was last reviewed 2023. Oxycodone, ur Not Detected CutOff 100ng/mL [facility] Comment: Interpretive Data - Oxycodone: Samples containing greater than 100 ng/mL oxycodone or other cross-reacting compounds are reported as positive. False positive and false negative results are possible. Confirmatory testing required for definitive results. Current Interpretive Data was last reviewed 2023. Phencyclidine, ur Not Detected CutOff 25 ng/mL [facility] Comment: Interpretive Data - Phencyclidine: Samples containing greater than 25 ng/mL phencyclidine or other cross-reacting compounds are reported as positive. False positive and false negative results are possible. Confirmatory testing required for definitive results. Current Interpretive Data was last reviewed 2023. Urine Creatinine 242 mg/dL [facility] Comment: Interpretive Data Urine Creatinine: < 10 mg/dL is extremely dilute = or > 10 but < 20 mg/dL is dilute = or > 20 mg/dL is normal Current Interpretive Data was last revised on 2017. Urine 02/03/2025 8:32 AM CDT 02/03/2025 5:03 PM CDT Narrative [facility] - 02/03/2025 6:27 PM CDT Drug of Abuse screening is performed by immunoassay for medical purposes only. This is not to be used for Pain Management purposes. If Detected, confirmation testing will be performed for Amphetamines, Cocaine, Fentanyl, Methadone, Opiates, Oxycodone or Phencyclidine. us Grayson Garcia MD PhD LAB URINE ORDERAB LES Final Result [facility] [place] [address] * PSA diagnostic (09/22/2021 8:55 AM SUPERVISOR COMPONENT ASSEMBLER) PSA <0.1 0.0 - 4.0 ng/mL [facility] - 01 Comment: Verified by repeat analysis Sunil ECLIA methodology. According to the [place] [employer], Serum PSA should decrease and remain at undetectable levels after radical prostatectomy. The AUA defines biochemical recurrence as an initial PSA value 0.2 ng/mL or greater followed by a subsequent confirmatory PSA value 0.2 ng/mL or greater. Values obtained with different assay methods or kits cannot be used interchangeably. Results cannot be interpreted as absolute evidence of the presence or absence of malignant disease. Blood specimen (specimen) 09/22/2021 8:55 AM SUPERVISOR COMPONENT ASSEMBLER 09/22/2021 Narrative [facility] - 09/23/2021 12:11 PM SUPERVISOR COMPONENT ASSEMBLER Performed at: - [address] [id number] [employer] Operator: Lloyd Pappas PhD, Phone: [phone] Sherita Handley [employer]FF[employer]NER [employer]TER LAB BLOOD ORDERABLES Final Result [facility] - 01 from Last 3 Months or Most Recently Relevant to Health Maintenance Insurance ANTHEM PREFERRED ANTHEM ACCESS CHOICE PRF PPO RI [facility] IDPA Advance Directives For more information, please contact: [phone] * Full Code (Latest Code Status on File) Date Activated Date Inactivated Comments 06/16/2021 10:03 AM 06/17/2021 4:54 AM * Full Code Date Activated Date Inactivated Comments 06/16/2021 10:03 AM 06/16/2021 10:03 AM Care Teams Surgical Consultant Relationship Specialty Start Date End Date Aneudy Gallo DO [address] [place] [address] PCP - General Family Medicine 11/10/23 Foster Mena MD [id number] [place] [address] Consulting Physician Radiation Oncology 09/28/20 Sherita Handley NP [id number] [place] [address] Nurse Practitioner Radiation Oncology 09/28/20
--- OUTSIDE RECORDS SUMMARY | 2025-02-24 14:04 | XMS_ITS | Referral Summary ---
Author Organization [facility] [address] [facility] Address [address] [place] [address] Care Team Providers Care Feed Mill Operator Name Role Phone Foster Mena MD Unavailable [phone] Sherita Handley NP Unavailable [phone] Aneudy Gallo DO Primary Care Provider Encounters Date Type Department Care Team Description 02/03/2025 8:30 AM CDT - 02/03/2025 11:59 PM CDT Hospital Encounter [place] [id number] Discharge Disposition: Discharge to home or self care 02/03/2025 8:00 AM CDT - 02/03/2025 11:59 PM CDT Hospital Encounter [facility] [address] [place] [address] Advanced Medicine [address] [place] [address] Grayson Garcia MD PhD Chronic use of opiate drug for therapeutic purpose (Primary Dx) Discharge Disposition: Discharge to home or self care from Last 3 Months Allergies No known active allergies Medications ALPRAZolam (XANAX) 1 mg tablet Take 1 tablet (1 mg total) by mouth nightly as needed for anxiety Active glucosamine HCl (GLUCOSAMINE, BULK, MISC)Indication s:supplement Take 1 tablet by mouth daily before breakfast Active multivitamin capsuleIndicati ons:Vitamin Deficiency Prevention Take 1 capsule by mouth daily before breakfast Active omega 2-tyq-xte-fish oil 1,200 (078-216) mg capsuleIndicati ons:hypertrigly ceridemia Take 1,200 mg by mouth daily before breakfast Active cholecalciferol (VITAMIN D-3) 5,000 unit tabletIndicatio ns:Vitamin D Deficiency Take 1 tablet (5,000 Units total) by mouth daily before breakfast Active yvzt-ptm-vgd-ce u-lgfw-inxv-pec (Fiber 6) 1,000 mg tabletIndicatio ns:constipation Take [...] (06/11/2020): Added automatically from request for surgery [id number] Malignant neoplasm of prostate 02/22/2016 Cancer Staging:Pathologic stage from 01/27/2016: pT2, pN0, cM0, PSA: 11 - Signed by Blanche Landry MD on 02/07/2018 Immunizations Immunization Administration Dates Next Due [facility] ([facility]) SARS-CoV-2 Vaccination 10/12/2020 Pfizer SARS-CoV-2 Monovalent Vaccination (12+ Yrs) ACUNA-READY TO USE 08/24/2021 Social History Tobacco Use Types Packs/Day Years Used Date Smoking Tobacco: Former Cigarettes 0.5 30 1 - 2020 Smokeless Tobacco: Never Tobacco [...] on file Legal Sex Male 4:06 AM ASSOCIATE DIRECTOR OF NURSING Gender Identity Male 01/27/2020 1:06 PM CDT Sexual Orientation Straight 01/27/2020 1: 06 PM CDT Last Filed Vital Signs Vital Sign Reading [...] 02/03/2025 8:05 AM CDT Plan of Treatment Not on file Goals Goal Patient Goal Type Associated Problems [...] as needed Medical Devices Implanted Type Area Quality Control Auditor Device Identifier Shelf Expiration Date Model / Serial / Lot VoAPPs [id number] Graft Soft Tissue Amniofix Purion Amniotic Membrane L2cm X W4cm Wrap - Sn/A - [id number] Implanted:Qty : 1 on 08/13/2020 by Fabio Kennedy MD at [facility] Other - see comments Right: Testicle [employer] 12/05/2024 [id number] / N/A / [id number] Cervical N/A: Neck Procedures Procedure Name Priority Date/Time Associated Diagnosis Comments TARGET OPIOID SCREEN BY PLASTER PATTERNMAKER Routine 02/03/2025 8:32 AM CDT DRUGS OF ABUSE SCREEN, URINE WITH REFLEX CONFIRMATION Routine 02/03/2025 8:32 AM CDT PSA DIAGNOSTIC Routine 09/22/2021 8:55 AM ASSOCIATE DIRECTOR OF NURSING Malignant neoplasm of prostate (HCC) from Last 3 Months or Most Recently Relevant to Health Maintenance Results * Targeted Opioid Screen, Ur (02/03/2025 8:32 AM CDT) Pathologist [facility] Pain mgt 6-Acetylmorphine, Ur Not Detected CutOff 10 ng/mL Pain mgt Buprenorphine, Ur Not Detected CutOff 5 ng/mL [facility] Pain mgt Buprenorphine metabolite (Norbuprenorphine), Ur Not Detected CutOff 5 ng/mL [facility] Pain mgt Codeine, Ur Not Detected CutOff 25 ng/mL [facility] Pain mgt Hydrocodone, Ur Not Detected CutOff 25 ng/mL [facility] Pain mgt Hydromorphone, Ur Not Detected CutOff 25 ng/mL [facility] Pain mgt Methadone, Ur Not Detected CutOff 25 ng/[facility] Methadone Metabolite (EDDP), Ur Not Detected CutOff 25 ng/mL [facility] Pain mgt Morphine, Ur Not Detected CutOff 25 ng/mL [facility] Pain mgt Oxycodone, Ur Not Detected CutOff 25 ng/mL [facility] Pain mgt Oxymorphone, Ur Not Detected CutOff 25 ng/mL [facility] Pain mgt Tapentadol, Ur Not Detected CutOff 25 ng/mL [facility] Pain mgt Tramadol, Ur Detected CutOff 25 ng/mL [facility] Pain mgt Tramadol metabolite (O-desmethyltramado l), Ur Detected CutOff 25 ng/mL [facility] Comment: Interpretive Data This test only detects [...] developed and its performance characteristics determined by [facility]. It has not been cleared or approved by the U.S. Food and Drug Administration. Current interpretive data was last revised 19. Pain mgt Naloxone, ur Not Detected cutoff 20 ng/ml [facility] Urine 02/03/2025 8:32 AM CDT 02/03/2025 5:03 PM CDT us Grayson Garcia MD PhD LAB URINE ORDERAB LES Final Result [facility] Department [place] [address] * (ABNORMAL) Drugs of Abuse Screen, Urine with Reflex Confirmation (02/03/2025 8:32 AM CDT) [facility] Amphetamine, ur Not Detected CutOff 500ng/mL Comment: Interpretive Data - Amphetamines: Samples containing greater than 500 ng/mL d-methamphetamine or other cross-reacting amphetamine compounds are reported as positive. Amphetamine immunoassays are subject to significant false positive rates due to cross-reactivity of non-amphetamine drugs. Confirmatory testing required for definitive results. Current Interpretive Data was last reviewed 2023. Barbiturates, ur Not Detected CutOff 200ng/mL [facility] Comment: Interpretive Data - Barbiturates: Samples containing greater than 200 ng/mL secobarbital or other cross-reacting barbiturate compounds are reported as positive. False positive and false negative results are possible. Confirmatory testing required for definitive results. Current Interpretive Data was last reviewed 2023. Benzodiazepines, ur Not Detected CutOff 100ng/mL [facility] Comment: Interpretive Data - Benzodiazepines: Samples containing greater than 100 ng/mL nordiazepam or other cross-reacting compounds are reported as positive. False positive and false negative results are possible. Confirmatory testing required for definitive results. Current Interpretive Data was last reviewed 2023. Cannabinoids, ur Screen Positive, presumptive (A) CutOff 50 ng/mL [facility] Comment: Interpretive Data - Cannabinoids: Samples containing greater than 50 ng/mL delta-9 THC -COOH or other cross- reacting compounds are reported as positive. False positive and false negative results are possible. Confirmatory testing required for definitive results. Current Interpretive Data was last reviewed 2023. Cocaine, ur Not Detected CutOff 150ng/mL [facility] Comment: Interpretive Data - Cocaine: Samples containing greater than 150 ng/mL benzoylecgonine or other cross- reacting compounds are reported as positive. False positive and false negative results are possible. Confirmatory testing required for definitive results. Current Interpretive Data was last reviewed 2023. Fentanyl, Ur Not Detected CutOff 5 ng/mL [facility] Comment: Interpretive Data - Fentanyl: Samples containing greater than 5 ng/mL norfentanyl, fentanyl, or other cross-reacting fentanyl compounds are reported as positive. False positive and false negative results are possible. Confirmatory testing required for definitive results. Current Interpretive Data was last reviewed 2023. Methadone, ur Screen Positive, presumptive (A) CutOff 300ng/mL [facility] Comment: Interpretive Data - Methadone: Samples containing greater than 300 ng/mL d,l-methadone or other cross-reacting compounds are reported as positive. False positive and false negative results are possible. Confirmatory testing required for definitive results. Current Interpretive Data was last reviewed 2023. Opiates, ur Not Detected CutOff 300ng/mL [facility] Comment: Interpretive Data - Opiates: Samples containing greater than 300 ng/mL morphine or other cross-reacting compounds are reported as positive. False positive and false negative results are possible. Confirmatory testing required for definitive results. Current Interpretive Data was last reviewed 2023. Oxycodone, ur Not Detected CutOff 100ng/mL [facility] Comment: Interpretive Data - Oxycodone: Samples containing greater than 100 ng/mL oxycodone or other cross-reacting compounds are reported as positive. False positive and false negative results are possible. Confirmatory testing required for definitive results. Current Interpretive Data was last reviewed 2023. Phencyclidine, ur Not Detected CutOff 25 ng/mL [facility] Comment: Interpretive Data - Phencyclidine: Samples containing greater than 25 ng/mL phencyclidine or other cross-reacting compounds are reported as positive. False positive and false negative results are possible. Confirmatory testing required for definitive results. Current Interpretive Data was last reviewed 2023. Urine Creatinine 242 mg/dL [facility] Comment: Interpretive Data Urine Creatinine: < 10 mg/dL is extremely dilute = or > 10 but < 20 mg/dL is dilute = or > 20 mg/dL is normal Current Interpretive Data was last revised on 2017. Urine 02/03/2025 8:32 AM CDT 02/03/2025 5:03 PM CDT Narrative [facility] - 02/03/2025 6:27 PM CDT Drug of Abuse screening is performed by immunoassay for medical purposes only. This is not to be used for Pain Management purposes. If Detected, confirmation testing will be performed for Amphetamines, Cocaine, Fentanyl, Methadone, Opiates, Oxycodone or Phencyclidine. Grayson Garcia MD PhD LAB URINE ORDERAB LES Final Result [facility] Department [place] [address] * PSA diagnostic (09/22/2021 8:55 AM ASSOCIATE DIRECTOR OF NURSING) PSA <0.1 0.0 - 4.0 ng/mL [facility] - 01 Comment: Verified by repeat analysis Sunil ECLIA methodology. According to the [employer], Serum PSA should decrease and [...] disease. Blood specimen (specimen) 09/22/2021 8:55 AM ASSOCIATE DIRECTOR OF NURSING 09/22/2021 Narrative [facility] - 09/23/2021 12:11 PM ASSOCIATE DIRECTOR OF NURSING Performed at: - [facility] [id number] Blow Off Worker: Lloyd Pappas PhD, Phone: [phone] Sherita Handley [facility] LAB BLOOD ORDERABLES Final Result Performing Organization Address City/State/[facility] Co de Phone Number [facility] - 01 from Last 3 Months or Most Recently Relevant to Health Maintenance Insurance [facility] Member Subscriber Plan / Payer (Ef fective 2018-Present) Name:Thao Good Relation to Subscriber:Self Name:THAO GOOD Payer ID:[id number] (NAIC) Type:[facility] Address: [address] [facility] [employer] Advance Directives For more information, please contact: [phone] * Full Code (Latest Code Status on File) Date Activated Date Inactivated Comments 06/16/2021 10:03 AM 06/17/2021 4:54 AM * Full Code Date Activated Date Inactivated Comments 06/16/2021 10:03 AM 06/16/2021 10:03 AM Care Teams Feed Mill Operator Relationship Specialty Start Date End Date Aneudy Gallo DO [address] [place] [address] PCP - General Family Medicine 11/10/23 [place] [address] [place] [address] # [address] [place] [address] Consulting Physician Radiation Oncology 09/28/20 Sherita Handley, ANNE [address] [facility] # [address] [place] [address] Nurse Practitioner Radiation Oncology 09/28/20
--- OUTSIDE RECORDS SUMMARY | 2025-02-24 14:04 | XMS_ITS ---
Author Organization [facility] [place] [id number] [facility] Address [address] [place] [address] Care Team Providers Care District Engineer Name Role Phone Foster Mena MD Unavailable Sherita Handley NP Unavailable [phone] Aneudy Gallo DO Primary Care Provider Active Problems Problem Noted Date Diagnosed Date Chronic use of opiate drug for therapeutic purpo se 01/12/2022 Other chronic pain 07/14/2021 Adjustment disorder with depressed mood 07/14/20 21 Complex regional pain syndrome type 2 06/21/2021 Groin pain, chronic, right 06/21/2021 Ilioinguinal neuralgia, right 06/21/2021 Pain in right testicle 06/11/2020 Overview (06/11/2020): Added automatically from request for surgery [id number] Malignant neoplasm of prostate 02/22/2016 Cancer Staging:Pathologic stage from 01/27/2016: pT2, pN0, cM0, PSA: 11 - Signed by Blanche Landry MD on 02/07/2018 Current Treatment and Therapy Plans No current plan information found. Past Treatment and Therapy Plans No past plan information found. Radiation Treatments * Course C1 10/24/2017 - 12/12/2017 Treatment Period Energy Fraction Dose Fractions Total Dose Plans Planned PROSTATE BST 11/30/2017 - 12/12/2017 180 9 / 1,620 PELVIS 10/24/2017 - 11/29/2017 220 28 / 6,160 Reference Points Delivered [id number] 11/30/2017 - 12/12/2017 1,620 [id number] 10/24/2017 - 11/29/2017 6,160 Lifetime Dose Tracking * Chemical Lifetime Dose Automatic Entry Manual Entr y DLP 542 mGycm 542 mGycm 0 mGycm
== END 2025-02-24 14:00 | disposition home or self-care (01) ==
PROVIDERS: PCP Family Medicine; Visit Provider Plastic Surgery
DX: M18.12 Unilateral primary osteoarthritis of first carpometacarpal joint, left hand (principal)
CPT/HCPCS: 73130